=== PATIENT | female | born 1960 | race Caucasian/White ===

== ENCOUNTER 2025-01-05 09:40 | Emergency (ER) | payer BC, SELFPAY ==
[2025-01-05 09:44] VITALS: BP 141/78
--- NOTE | 2025-01-05 11:20 | ED.GENMED ---
History of Present Illness
General
Chief Complaint: DVT/Possible Blood Clot
Source: patient
Exam Limitations: none
Time Seen by Provider: 01/05/25 11:10
History of Present Illness
History of Present Illness:
64-year-old female presents with 2 to 3 days worth of dull ache to the posterior right calf. She has a history of a DVT following a long car trip. She was on a blood thinner temporarily but is not currently anticoagulated. She denies chest pain
or shortness of breath. No fevers. No known injury. No back pain or numbness
Past History
Past History
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
ED Past Surgical History: Cholecystectomy
Social History
Tobacco: Non-smoker
Alcohol: None
Drug: None
Personal:
Living: with family
Employment: Employed
Family History
Family History: Other (Dad with gallstones, that was prostate and kidney cancer, mother with breast and endometrial cancer, sister with breast cancer)
Phy Exam
Physical Exam
Physical Exam:
General: Well-appearing female no acute distress musculoskeletal exam: Right calf is nontender no obvious swelling good range of motion to the knee and ankle there is no increased pain with hyper dorsiflexion of the ankle there is 2+ DP pulse to the
right foot with good sensation to the right leg
Course
Orders/Labs/Results
Orders:
Orders
01/05/25 10:07
Legs, Right US [US Periph Venous LOWER Ext RT] Urgent
Comment:
Reason For Exam: calf pain, hx of dvt
Vital Signs
Initial and Last Documented VS:
Initial Vital Signs
Temp Pulse Resp BP Pulse Ox
98 F 82 16 141/78 99
01/05/25 09:44 01/05/25 09:44 01/05/25 09:44 01/05/25 09:44 01/05/25 09:44
Last Documented Vital Signs
Temp Pulse Resp BP Pulse Ox
98 F 82 16 141/78 99
01/05/25 09:44 01/05/25 09:44 01/05/25 09:44 01/05/25 09:44 01/05/25 09:44
MDM/Problems Addressed
Differential Diagnosis Includes:
Right calf pain. Consider calf strain versus DVT. No signs on exam distant with infection. Ultrasound of the right leg was ordered through triage which is negative for DVT. Patient reassured.
*Pulse Oximetry
SaO2: 99
Oxygen Mode of Delivery: Room air
Patient hypoxic: no
*Critical Care Note
Total Time (30-74mins, 75-104mins- exclusive of procedures): Not Applicable
ED Attending Note
-
Portions of this chart may have been created with voice recognition software.� Occasional wrong word or��sound alike� substitutions may have occurred due to the inherent limitations of voice recognition software.
Discharge Plan
Departure
Patient Disposition: Home (Routine Discharge)
Date of Disposition: 01/05/25
Time of Disposition: 11:21
Patient with high blood pressure during this ER visit?: No
Discharge Problem:
Calf pain
Instructions: Guevara's Cyst (DC)
Prescriptions:
No Action
polyethylene glycol 3350 [Miralax] 17 gram powder in packet
17 g PO DAILY PRN (Reason: constipation) Qty: 14 0RF
Probiotic
1 cap PO DAILY
Emergency Inhaler
2 puff PO DAILY PRN (Reason: SOB)
acetaminophen [acetaminophen] 325 mg tablet
650 mg PO Q4HPRN PRN (Reason: mild pain) Qty: 1 0RF
ibuprofen 200 mg tablet
400 - 600 mg PO Q6HPRN PRN (Reason: moderate pain) Qty: 1 0RF
oxycodone 5 mg tablet
5 mg PO Q4HPRN PRN (Reason: breakthrough/severe pain) Qty: 15 0RF
Referrals:
Brisa Dickinson PA [Family Provider, Family Practice]
Activity Restrictions/Additional Instructions:
Return here for worsening symptoms. You may use ibuprofen or Tylenol if needed for pain. Follow-up with your doctor otherwise
Interventions
Interventions:
*Risk Screen - Suicide Last Done: 01/05/25 09:45
*Neglect/Abuse Screening Last Done: 01/05/25 09:45
ED- Cardiac Assessment Last Done: 01/05/25 11:17
ED- Pulmonary Assessment Last Done: 01/05/25 11:17
ED-Peripheral Vascular Assessment Last Done: 01/05/25 11:17
ED-Skin Assessment Last Done: 01/05/25 11:17
Discharge Date and Time
Print Language: GEORGIAN
== END 2025-01-05 11:32 | disposition home or self-care (01) ==
LOC: EMR 09:40
PROVIDERS: EMERGENCY PHYSICIAN Emergency Medicine; FAMILY PHYSICIAN Physician Assistant Medical
DX: M79.661 Pain in right lower leg (principal); D50.9 Iron deficiency anemia, unspecified; Z80.3 Family history of malignant neoplasm of breast; Z86.718 Personal history of other venous thrombosis and embolism; Z90.49 Acquired absence of other specified parts of digestive tract
CPT/HCPCS: 99284; 93971